=== PATIENT | female | born 1970 | race Caucasian/White ===

== ENCOUNTER 2018-09-14 02:10 | Emergency (ER) | payer SELFPAY ==
[~2018-09-14] VITALS: Ht 167.6 cm; Wt 109.1 kg
[2018-09-14] MEDS ORDERED: KETOROLAC TROMETHAMINE 60 MG/2 ML VIAL IM ONE (02:45)
[2018-09-14] MEDS ORDERED: CYCLOBENZAPRINE HCL 10 MG TABLET PO ONE (02:45)
[2018-09-14] MEDS ORDERED: PredniSONE 20 MG TABLET PO ONE (04:45)
[2018-09-14 04:47] VITALS: BP 130/74
== END 2018-09-14 04:45 | disposition home or self-care (01) ==
LOC: EMS 02:10
DX: M75.31 Calcific tendinitis of right shoulder (principal)
CPT/HCPCS: 73030; 96372; 99283; J1885; J7512

== ENCOUNTER 2021-02-16 11:11 | Emergency (ER) | payer MEDICAID ==
[~2021-02-16] VITALS: Ht 165.1 cm; Wt 100.0 kg
[2021-02-16] MEDS ORDERED: IBUPROFEN 600 MG TABLET PO ONE (11:30)
[2021-02-16 13:03] VITALS: BP 132/71
== END 2021-02-16 13:04 | disposition home or self-care (01) ==
LOC: EDUNIT# 11:11 → EMS 11:15
DX: S46.911A Strain of unspecified muscle, fascia and tendon at shoulder and upper arm level, right arm, initial encounter (principal); S80.01XA Contusion of right knee, initial encounter; E11.9 Type 2 diabetes mellitus without complications; W19.XXXA Unspecified fall, initial encounter; Y93.89 Activity, other specified; Y92.89 Other specified places as the place of occurrence of the external cause; Y99.8 Other external cause status
CPT/HCPCS: 99284; 73080-TC; 73562-TC; Z7502; Z7610

== ENCOUNTER 2021-04-19 09:23 | Emergency (ER) | payer MEDICAID ==
[~2021-04-19] VITALS: Ht 167.6 cm; Wt 90.9 kg
[2021-04-19] MEDS ORDERED: SODIUM PHOS/SODIUM BIPHOS 133 ML ENEMA PR ONE (11:00)
[2021-04-19] MEDS ORDERED: MAGNESIUM CITRATE 300 ML ORAL SOLUTION PO ONE (11:00)
[2021-04-19] MEDS ORDERED: DOCUSATE SODIUM 100 MG CAPSULE PO ONE (11:00)
[2021-04-19 11:10] VITALS: BP 138/85
== END 2021-04-19 11:25 | disposition home or self-care (01) ==
LOC: EMS 09:28
DX: K59.00 Constipation, unspecified (principal); I10 Essential (primary) hypertension; E11.9 Type 2 diabetes mellitus without complications
CPT/HCPCS: 82962; 99284

== ENCOUNTER 2021-08-19 21:58 | Emergency (ER) | payer MEDICAID ==
[~2021-08-19] VITALS: Ht 170.2 cm; Wt 113.6 kg
[2021-08-19] MEDS ORDERED: ATOR20TA65 PO (22:09)
[2021-08-19] MEDS ORDERED: METF-446 PO (22:09)
[2021-08-19] MEDS ORDERED: LISI10TA24 PO (22:09)
[2021-08-20 02:20] VITALS: BP 137/74
== END 2021-08-20 02:26 | disposition home or self-care (01) ==
LOC: EMS 21:58
DX: R07.0 Pain in throat (principal); E11.9 Type 2 diabetes mellitus without complications; E78.00 Pure hypercholesterolemia, unspecified; I10 Essential (primary) hypertension
CPT/HCPCS: 70360; 71045; 99284

== ENCOUNTER 2021-10-15 11:50 | Emergency (ER) | payer MEDICAID ==
[~2021-10-15] VITALS: Ht 172.7 cm; Wt 113.6 kg
[~2021-10-15 11:50] MED LIST: ATOR20TA65 PO; LISI10TA24 PO; METF-446 PO
[2021-10-15] MEDS ORDERED: OMEP40CA21 PO (15:38)
[2021-10-15] MEDS ORDERED: TRAZ-252 PO (15:38)
[2021-10-15] MEDS ORDERED: LUBI24CA9 PO (15:38)
[2021-10-15] MEDS ORDERED: IBUPROFEN 600 MG TABLET PO ONE (15:45)
[2021-10-15] MEDS ORDERED: IBUP-2070 PO (16:00)
[2021-10-15 16:35] VITALS: BP 127/71
== END 2021-10-15 16:37 | disposition home or self-care (01) ==
LOC: EMS 11:50
DX: M25.531 Pain in right wrist (principal); M19.90 Unspecified osteoarthritis, unspecified site; E11.9 Type 2 diabetes mellitus without complications; E78.00 Pure hypercholesterolemia, unspecified; I10 Essential (primary) hypertension; Z98.890 Other specified postprocedural states
CPT/HCPCS: 82962; 99283

== ENCOUNTER 2022-06-03 18:53 | Emergency (ER) | payer MEDICAID ==
[~2022-06-03] VITALS: Ht 170.2 cm; Wt 102.3 kg
[~2022-06-03 18:53] MED LIST changes: +IBUP-1492 PO; +LUBI24CA9 PO; +OMEP40CA21 PO; +TRAZ-252 PO
[2022-06-03 18:56] VITALS: BP 145/113
[2022-06-03] MEDS ORDERED: OMEP20CA12 PO (19:44)
[2022-06-03] MEDS ORDERED: ATOR10TA69 PO (19:44)
[2022-06-03] MEDS ORDERED: ERGO500054 PO (19:44)
[2022-06-03] MEDS ORDERED: PEG 3350/NA SULF,BICARB,CL/KCL 4000 ML SOLUTION PO ONE (19:45)
[2022-06-03 19:50] LABS: BASOPHILS % (AUTO) 0.8 % (0.0-2.0); EOSINOPHILS % (AUTO) 4.1 % (1.0-6.0); HEMATOCRIT 38.7 % (36-46); HEMOGLOBIN 12.9 g/dL (12.0-16.0); LYMPHOCYTES # (AUTO) 2.6 K/uL (1.0-4.8); LYMPHOCYTES % (AUTO) 23.8 % (22.0-44.0); MEAN CORPUSCULAR HEMOGLOBIN 29.2 pg (26.0-34.0); MEAN CORPUSCULAR HGB CONC 33.3 G/dL (31.0-37.0); MEAN CORPUSCULAR VOLUME 88 fL (80-100); MONOCYTES # (AUTO) 0.5 K/uL (0.1-1.0); MONOCYTES % (AUTO) 4.9 % (2.0-9.0); NEUTROPHILS # (AUTO) 7.2 K/uL (1.8-7.7); NEUTROPHILS % (AUTO) 66.4 % (40.0-70.0); PLATELET COUNT (AUTO) 242 K/uL (150-450); RED CELL DISTRIBUTION WIDTH 13.7 % (11.5-14.5)
[2022-06-03 19:58] LABS: ANION GAP 4 mmol/L (8-16); CALCIUM, TOTAL 8.7 mg/dL (8.8-10.5); CARBON DIOXIDE 30 mmol/L (22-29); CHLORIDE 102 mmol/L (98-107); GLOMERULAR FILTR. RATE CALC > 60 mL/min (>60); GLUCOSE,RANDOM 243 mg/dL (70-110); POTASSIUM 3.6 mmol/L (3.5-5.1); SODIUM SERUM 136 mmol/L (136-145); UREA NITROGEN, BLOOD 14 mg/dL (7-18)
[2022-06-03 20:03] LABS: ALANINE AMINOTRANSFERASE 39 U/L (12-78); ALBUMIN 3.3 g/dL (3.4-5.0); ALKALINE PHOSPHATASE 109 U/L (46-116); ASPARTATE AMINOTRANSFERASE 25 U/L (15-37); BILIRUBIN,TOTAL 0.2 mg/dL (0.1-1.0); LIPASE 131 U/L (73-393); TOTAL PROTEIN, SERUM 7.4 g/dL (6.4-8.2)
[2022-06-03] MEDS ORDERED: POLY238P PO (21:47)
[2022-06-03] MEDS ORDERED: LUBI24CA9 PO (21:47)
== END 2022-06-03 22:49 | disposition home or self-care (01) ==
LOC: EMS 18:57
DX: R10.84 Generalized abdominal pain (principal); K59.09 Other constipation; E11.65 Type 2 diabetes mellitus with hyperglycemia; E78.00 Pure hypercholesterolemia, unspecified; I10 Essential (primary) hypertension; M19.90 Unspecified osteoarthritis, unspecified site
CPT/HCPCS: 74022; 80053; 82962; 83690; 84484; 85025; 93005; 99285

== ENCOUNTER 2025-02-16 08:10 | Emergency (ER) | payer MEDICAID ==
[~2025-02-16] VITALS: Ht 170.2 cm; Wt 95.5 kg
[~2025-02-16 08:10] MED LIST changes: +ATOR10TA69 PO; -ATOR20TA65 PO; +ERGO500054 PO; -IBUP-1492 PO; +OMEP20CA12 PO; -OMEP40CA21 PO; +POLY238P PO
[2025-02-16 08:40] LABS: GLUCOMETER DEV NAME(LOC) ERT.7; GLUCOSE,POINT OF CARE 119 MG/DL (70-110)
[2025-02-16 08:42] LABS: PLATELET COUNT (AUTO) 263 K/uL (150-450); RED BLOOD CELL COUNT(AUTO) 4.60 MIL/uL (4.00-5.20); RED CELL DISTRIBUTION WIDTH 13.9 % (11.5-14.5); WHITE BLOOD COUNT (AUTO) 10.7 K/uL (4.5-11.0)
[2025-02-16 08:52] LABS: CALCIUM, TOTAL 9.3 mg/dL (8.8-10.5); CREATININE 0.73 mg/dL (0.60-1.30); GLOMERULAR FILTR. RATE CALC > 60 mL/min (>60); GLUCOSE,RANDOM 118 mg/dL (70-110); SODIUM SERUM 137 mmol/L (136-145); UREA NITROGEN, BLOOD 12 mg/dL (7-18)
[2025-02-16 09:03] LABS: TROPONIN I-HIGH SENSITIVITY Less Than 4 ng/L (<51)
[2025-02-16 09:16] LABS: ASPARTATE AMINOTRANSFERASE 21.0 U/L (15-37); TOTAL PROTEIN, SERUM 7.9 g/dL (6.4-8.2)
[2025-02-16 09:57] VITALS: TEMP 98.1
[2025-02-16 10:35] LABS: APPEARANCE,URINE HAZY (CLEAR); GLUCOSE, URINE (UA) NEGATIVE (NEGATIVE); LEUKOCYTE ESTERASE ,URINE NEGATIVE (NEGATIVE); NITRATE,URINE NEGATIVE (NEGATIVE); OCCULT BLOOD,URINE NEGATIVE (NEGATIVE); SPECIFIC GRAVITIY, URINE 1.029 (1.003-1.030)
[2025-02-16] MEDS: ONDANSETRON HCL 4 MG/2 ML VIAL IVP ONE ×2 (10:55→13:21)
[2025-02-16] MEDS: MAG HYDROX/ALUMINUM HYD/SIMETH ES 30 ML SUSPENSION UDCUP PO ONE (10:56)
[2025-02-16] MEDS: FAMOTIDINE 20 MG TABLET PO ONE (10:56)
[2025-02-16 12:33] VITALS: BP 155/75; PULSE 62; RESP 18; O2SAT 99
[2025-02-16] MEDS ORDERED: FAMO20 PO (13:08)
[2025-02-16] MEDS ORDERED: GABA-529 PO (13:17)
[2025-02-16] MEDS ORDERED: OLOP2.5D16 OU (13:17)
[2025-02-16] MEDS ORDERED: OLME20TA68 PO (13:17)
[2025-02-16] MEDS ORDERED: PANT40TA54 PO (13:17)
[2025-02-16] MEDS ORDERED: LIDO1ADH63 TP (13:17)
[2025-02-16] MEDS ORDERED: DICL100G60 TP (13:17)
[2025-02-16] MEDS ORDERED: ASPI-1444 PO (13:17)
[2025-02-16] MEDS ORDERED: LINA290C PO (13:17)
[2025-02-16] MEDS ORDERED: HYDR12.56 PO (13:17)
[2025-02-16] MEDS ORDERED: EMPA10TA3 PO (13:17)
[2025-02-16] MEDS: KETOROLAC TROMETHAMINE 30 MG/ML VIAL IVP ONE (13:21)
== END 2025-02-16 13:32 | disposition home or self-care (01) ==
LOC: EMS 08:11
DX: K21.9 Gastro-esophageal reflux disease without esophagitis (principal); R10.84 Generalized abdominal pain; E11.9 Type 2 diabetes mellitus without complications; E78.00 Pure hypercholesterolemia, unspecified; I10 Essential (primary) hypertension; K29.70 Gastritis, unspecified, without bleeding; M19.90 Unspecified osteoarthritis, unspecified site; Z87.19 Personal history of other diseases of the digestive system; Z90.721 Acquired absence of ovaries, unilateral; Z96.651 Presence of right artificial knee joint; Z79.899 Other long term (current) drug therapy
CPT/HCPCS: 99284; 96374; 96375; 80048; 80076; 81003; 82962; 83690; 84484; 85025; 36415; 93005; 96376; J1885; J2405